=== PATIENT | male | born 1975 | race Caucasian/White ===

== ENCOUNTER 2023-06-06 22:27 | Inpatient (IN) | payer OTHER, SELFPAY ==
[2023-06-06 22:28] VITALS: BP 135/101; PULSE 99; RESP 16; TEMP 37.6; O2SAT 99; BMI 31.7
[2023-06-06 23:03] VITALS: BMI 31.7
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
[2023-06-06 23:30] LABS: Basophils # 0.1 K/mm3 (0-0.2); Basophils % 0.4 % (0.1-2.0); Eosinophils # 0.2 K/mm3 (0.0-0.4); Eosinophils % 1.6 % (0.1-12.0); Hematocrit 47.7 % (42.0-52.0); Hemoglobin 15.8 g/dL (14.1-18.0); Lymphocytes # 2.9 K/mm3 (0.7-4.5); Lymphocytes % 23.7 % (10-50); Mean Corpuscular Hemoglobin 30.3 pg (27.0-31.2); Mean Corpuscular Volume 91.7 fl (80-94); Mean Platelet Volume 8.2 fl (7.4-10.4); Monocytes # 0.9 K/mm3 (0.1-1.0); Monocytes % 7.6 % (1.7-9.3); Neutrophils # 8.3 K/mm3 (1.8-7.8); Neutrophils % 66.8 % (37.0-80.0); Platelet Count 250 K/mm3 (142-424); Red Blood Count 5.21 M/mm3 (4.60-6.20); Red Cell Distribution Width 13.6 % (11.5-17.5); White Blood Count 12.4 K/mm3 (4.8-10.8)
[2023-06-06 23:36] LABS: Lactic Acid 1.4 mmol/L (0.7-2.1)
[2023-06-06 23:37] LABS: Alanine Aminotransferase 28 U/L (12-78); Albumin Level 4.6 g/dl (3.5-5.0); Albumin/Globulin Ratio 1.4 (1.1-1.8); Alkaline Phosphatase 73 U/L (38-126); Anion Gap 14.9 mEq/L (5-15); Aspartate Amino Transferase 35 U/L (17-59); Bilirubin,Total 0.9 mg/dl (0.2-1.3); Blood Urea Nitrogen 18 mg/dl (9-20); Calcium 8.9 mg/dl (8.4-10.2); Carbon Dioxide 25 mmol/L (22.0-30.0); Chloride 104 mmol/L (98-107); Creatinine Clearance Estimated 141 mL/min (50-200); Estimated Glomerular Filt Rate 91 ml/min (>60); GFR (African American) 110 ML/MIN (>60); Globulin 3.3 g/dL (1.3-3.2); Glucose 91 mg/dl (74-100); Potassium 3.9 mmoL/L (3.5-5.1); Sodium 140 mmol/L (136-145); Total Protein,Serum 7.9 g/dl (6.3-8.2)
[2023-06-06 23:42] LABS: C-Reactive Protein 19.7 mg/L (0-4)
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
[2023-06-06 23:56] LABS: Procalcitonin 0.047 ng/mL (0.0-2.0)
[2023-06-07] VITALS (26 sets, daily range): BP systolic 115–148; BP diastolic 69–97; PULSE 65–94; RESP 15–22; TEMP 36.2–43; O2SAT 96–100; BMI 31.8
[2023-06-07 00:01] LABS: Erythrocyte Sedimentation Rate 15 mm/hr (0-15)
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
--- NOTE | 2023-06-07 02:10 | PC.NURSE ---
minor on phone with dr wall
--- NOTE | 2023-06-07 02:10 | PC.NURSE ---
minor speaking with hospitalist
--- NOTE | 2023-06-07 02:18 | PC.NURSE ---
Registration notified of admission. Pt assigned to room 214 to the hospitalist. OBS.
[2023-06-07 02:21] LABS: Coronavirus 19, PCR Not Detected (NotDetected); Influenza A, PCR Not Detected (NotDetected); Influenza B, PCR Not Detected (NotDetected)
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
--- NOTE | 2023-06-07 02:49 | PC.NURSE ---
gave report to Tevin RN on 2nd floor, awaiting covid swab
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
--- NOTE | 2023-06-07 03:07 | PC.NURSE ---
0310 PATIENT ARRIVED TO THE FLOOR VIA STRETCHER. ADMITTED TO ROOM 214.
--- NOTE | 2023-06-07 03:12 | PC.NURSE ---
Pt arrived to the floor via stretcher @ [id number]
[2023-06-07 06:06] LABS: Basophils # 0.1 K/mm3 (0-0.2); Basophils % 0.6 % (0.1-2.0); Eosinophils # 0.2 K/mm3 (0.0-0.4); Eosinophils % 1.8 % (0.1-12.0); Hematocrit 44.8 % (42.0-52.0); Hemoglobin 14.5 g/dL (14.1-18.0); Lymphocytes # 3.1 K/mm3 (0.7-4.5); Lymphocytes % 28.7 % (10-50); Mean Corpuscular HGB Conc 32.3 g/dL (31.8-35.4); Mean Corpuscular Hemoglobin 30.4 pg (27.0-31.2); Mean Corpuscular Volume 94.1 fl (80-94); Mean Platelet Volume 8.2 fl (7.4-10.4); Monocytes # 0.9 K/mm3 (0.1-1.0); Monocytes % 7.8 % (1.7-9.3); Neutrophils # 6.7 K/mm3 (1.8-7.8); Neutrophils % 61.2 % (37.0-80.0); Platelet Count 214 K/mm3 (142-424); Red Blood Count 4.76 M/mm3 (4.60-6.20); Red Cell Distribution Width 13.8 % (11.5-17.5); White Blood Count 10.9 K/mm3 (4.8-10.8)
[2023-06-07 06:13] LABS: Anion Gap 9.9 mEq/L (5-15); Blood Urea Nitrogen 15 mg/dl (9-20); Carbon Dioxide 27 mmol/L (22.0-30.0); Chloride 106 mmol/L (98-107); Creatinine Clearance Estimated 141 mL/min (50-200); Estimated Glomerular Filt Rate 91 ml/min (>60); GFR (African American) 110 ML/MIN (>60); Glucose 101 mg/dl (74-100); Magnesium 1.9 mg/dl (1.6-2.3); Potassium 3.9 mmoL/L (3.5-5.1); Sodium 139 mmol/L (136-145)
--- NOTE | 2023-06-07 07:27 | MR_ITS ---
FINAL REPORT CLINICAL HISTORY: rule out Grigsby-Alie lesion left knee/thigh FINDINGS: Multiplanar MR imaging of the right knee to include the distal thigh was performed without contrast. The menisci and ligaments are suboptimally visualized but appear to be intact. The distal quadriceps and patellar tendons appear intact. There is no fracture or bone marrow edema. There is a heterogeneous collection in the region of the medial distal thigh in the deep subcutaneous tissues measuring 12 cm in length and 7 x 1.8 cm in axial dimension with an appearance consistent with a hematoma. There lies superficial to the vastus medialis muscle and is consistent with a Grigsby Alie lesion. There is a small joint effusion. A small popliteal cyst is present. IMPRESSION: Heterogeneous collection in the region of the medial distal thigh consistent with a Grigsby Alie lesion. Small joint effusion. Reviewed, Interpreted and Dictated by Ramón Mccann III, MD Transcribed by Hailey Galvan Authenticated and [facility]
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
--- NOTE | 2023-06-07 08:25 | EXP.PHA.CONS ---
Pharmacy Consult Date: 06/07/23 Time: 08:25 Referring provider: DR MEJIAS Reason for Consult:: VANCOMYCIN DOSING CONSULT Allergies Allergy/AdvReac Type Severity Reaction Status Date / Time No Known Allergies Allergy Unverified 06/07/23 07:14 Home Medications Medication Instructions Recorded Confirmed Type No Known Home Medications 06/07/23 06/07/23 History New Prescriptions to Start Prescriptions: Height: 1.75 m Weight: 97.341 kg Laboratory Results:: Laboratory Results - last 24 hr 06/06/23 23:09: WBC 12.4 H, RBC 5.21, Hgb 15.8, Hct 47.7, MCV 91.7, MCH 30.3, MCHC 33.0, RDW 13.6, Plt Count 250, MPV 8.2, Neut % (Auto) 66.8, Lymph % (Auto) 23.7, [place] % (Auto) 7.6, Eos % (Auto) 1.6, Baso % (Auto) 0.4, Neut # (Auto) 8.3 H, Lymph # (Auto) 2.9, [place] # (Auto) 0.9, Eos # (Auto) 0.2, Baso # (Auto) 0.1, ESR 15, Sodium 140, Potassium 3.9, Chloride 104, Carbon Dioxide 25, Anion Gap 14.9, BUN 18, Creatinine 0.90, Estimated Creat Clear 141, Estimated GFR 91, Est GFR ( Amer) 110, Glucose 91, Lactate 1.4, Calcium 8.9, Total Bilirubin 0.9, AST 35, ALT 28, Alkaline Phosphatase 73, C-Reactive Protein 19.7 H, Total Protein 7.9, Albumin 4.6, Globulin 3.3 H, Albumin/Globulin Ratio 1.4, Procalcitonin 0.047 06/07/23 02:14: SARS-CoV-2 (PCR) Not detected, Influenza A Untype (PCR) Not detected, Influenza Type B (PCR) Not detected 06/07/23 05:40: WBC 10.9 H, RBC 4.76, Hgb 14.5, Hct 44.8, MCV 94.1 H, MCH 30.4, MCHC 32.3, RDW 13.8, Plt Count 214, MPV 8.2, Neut % (Auto) 61.2, Lymph % (Auto) 28.7, [place] % (Auto) 7.8, Eos % (Auto) 1.8, Baso % (Auto) 0.6, Neut # (Auto) 6.7, Lymph # (Auto) 3.1, [place] # (Auto) 0.9, Eos # (Auto) 0.2, Baso # (Auto) 0.1, Sodium 139, Potassium 3.9, Chloride 106, Carbon Dioxide 27, Anion Gap 9.9, BUN 15, Creatinine 0.90, Estimated Creat Clear 141, Estimated GFR 91, Est GFR ( Amer) 110, Glucose 101 H, Calcium 8.0 L, Magnesium 1.9 Assessment and Plan Assessment and plan all Dx Assessment and Plan for all problems:: Pharmacokinetic dosing service Objective: Age: 47 yo Serum creatinine: 0.9 mg/dL Height: 68.9 Inches Weight (kg): 97.341 Diagnosis: CELLULITIS Assessment: IBW (kg): 70.47 Dosing wt(kg): 97.341 Estimated Creatinine clearance (ml/min): 102.2 CRCL method: Cockcroft and Gault using ibw(default). Drug selected: Vancomycin Loading dose (mg): Vd (liters): 68.1 (factor used: 0.7 L/kg) Nir (hr-1): 0.089 Half life (hrs): 7.79 CLvanco=?? 6.061 L/hr Recommended dose: 1750 mg Interval: 12 hrs Infusion time (hrs): 2.0 Predicted peak (mcg/mL): 35.9 Predicted trough (mcg/mL): 14.74 Total body weight is being used for vancomycin dosing. Recommendations: Give Vancomycin 1750 mg q 12 hrs with an expected Cpeak of 35.9 mcg/ml and an expected Ctrough of 14.74 mcg/ml AUC 0-24 /ALIYAH Data: ALIYAH 0.5 mcg/mL:?? AUC/ALIYAH:? 1154.9 ALIYAH 1.0 mcg/mL:?? AUC/ALIYAH:? 577.5 --------- ALIYAH 1.5 mcg/mL:?? AUC/ALIYAH:? 385.0 ALIYAH 2.0 mcg/mL:?? AUC/ALIYAH:? 288.7 Thank you for the consult
--- NOTE | 2023-06-07 08:53 | PC.NURSE ---
PT TO RAD
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
--- NOTE | 2023-06-07 09:02 | PC.NURSE ---
COURTESY TECH NOTE; ROUNDED ON PT 0805, PT DENIED NEED FOR ASSISTANCE WITH RESTROOM, AND NEED TO REPOSITION IN BED. CALL LIGHT WITHIN REACH, NO FURTHER REQUESTS AT THIS TIME KEREN SAMPSON
--- NOTE | 2023-06-07 11:41 | PC.NURSE ---
PT TO SURGERY
--- NOTE | 2023-06-07 12:31 | P.PN_ITS ---
[facility] Disclaimer: The information contained in this section may have been updated after the patient was seen, as this information can be updated by other users. Social History (Updated 06/07/23 @ 03:54 by Veronica Webber RN) Smoking Status: Current every day smoker tobacco type: cigarettes packs per day: 1 alcohol intake: never substance use type: denies use current occupational status: other Travel in the last 8 weeks: None [facility] Anesthesia Checklist Patient Identification Patient Identification: Arm Band Structural Data Admitted From: Inpatient Planned Operative Procedure/s: Debridement and Evacuation of Left Knee Hematoma Consent for Planned Operative Procedure(s) Verified: Yes Verified Documents: Surgical Consent and History and Physical NPO Status Verified Time NPO: 00:00 Additional verifications Anesthesia Reactions: No Airway Assessment C-Spine Mobility Assessed: Yes TMJ Mobility Assessed: Yes Dentition: Good Dentition Neurological Assessment Level of Consciousness: Awake and Alert Anesthesia Plan Anesthesia Risk discussed: Yes Anesthesia Plan: Verified ASA Class: II Anesthesia Type: General
--- NOTE | 2023-06-07 12:57 | EXP.ANES.I ---
[facility] Anesthesia Record Part I Anesthesia Record I Intake, IV Amount: 1,000 Estimated blood loss (mL): 100 Urine output (mL): 0 Blood Products used (#): none Blood Pressure: 134/87 SaO2: 96 Pulse Rate: 75 Respiratory Rate: 16 Temperature: 97.2 F Patient is:: Drowsy and Stable Stable to PACU at:: 12:55
--- NOTE | 2023-06-07 13:47 | EXP.ANES.II ---
[facility] Anesthesia Record Part II Anesthesia Record Part II Discharge Time: 13:22 Destination: Medical Surgical Department PACU nurse assessment reviewed?: Yes Patient Condition:: Good Anesthesia Complications:: None Swallowing reflex intact?: Yes Cyanosis?: No Blood Pressure: 135/84 Pulse Rate: 69 Temperature: 97.2 F Mental Status: Alert & Oriented Pain level:: 0 Nausea and/or vomitting:: None Intake, IV Amount: 0
--- NOTE | 2023-06-07 18:29 | PC.NURSE ---
Patient post op vitals stable, no complaints or reports of pain.
--- NOTE | 2023-06-07 18:32 | PC.NURSE ---
COURTESY TECH NOTE; PRIMARY TECH ASSISTED PT WITH BATH SET UP, PT STATED HIS WOULD ASSIST HIM WHEN READY. PT DID NOT REFUSE TO BATHE BUT DID NOT BATHE DURING THIS SHIFT. Charlotte FORD, KEREN
--- NOTE | 2023-06-07 19:03 | PC.NURSE ---
PT REF BATH PRIOR TO SURGERY SATING HE WANTS TO WAIT FOR HIS . TECH SET PT UP FOR BS BATH THIS EVENING AND PT REF.
--- NOTE | 2023-06-07 21:28 | PC.NURSE ---
assessed pain, pt stated he wasn't in any pain. MISSY drain is patent with red bloody drainage.
[2023-06-08] VITALS: BP 133/73; PULSE 70; RESP 16; TEMP 36.7; O2SAT 97
--- NOTE | 2023-06-08 00:52 | PC.NURSE ---
pt refused bath several times t/o night.
--- NOTE | 2023-06-08 00:54 | PC.NURSE ---
Pt was asked by both techs if wanted a bath, pt refused, stated she has asked all day and he has refused reported to RN.
[2023-06-08 04:00] VITALS: BP 134/82; PULSE 60; RESP 16; TEMP 36.6; O2SAT 98; BMI 32.5
--- NOTE | 2023-06-08 06:15 | PC.NURSE ---
emptied MISSY drain, 8 ml output, no clots or c/o of pain
[2023-06-08 07:27] VITALS: BP 144/87; PULSE 77; RESP 17; TEMP 36.8; O2SAT 96
[2023-06-08 07:55] LABS: Alanine Aminotransferase 21 U/L (12-78); Albumin Level 3.6 g/dl (3.5-5.0); Albumin/Globulin Ratio 1.3 (1.1-1.8); Alkaline Phosphatase 67 U/L (38-126); Anion Gap 10.2 mEq/L (5-15); Aspartate Amino Transferase 28 U/L (17-59); Bilirubin,Total 0.3 mg/dl (0.2-1.3); Blood Urea Nitrogen 17 mg/dl (9-20); Calcium 8.4 mg/dl (8.4-10.2); Carbon Dioxide 27 mmol/L (22.0-30.0); Chloride 107 mmol/L (98-107); Creatinine Clearance Estimated 145 mL/min (50-200); Estimated Glomerular Filt Rate 91 ml/min (>60); GFR (African American) 110 ML/MIN (>60); Globulin 2.7 g/dL (1.3-3.2); Glucose 94 mg/dl (74-100); Potassium 4.2 mmoL/L (3.5-5.1); Sodium 140 mmol/L (136-145); Total Protein,Serum 6.3 g/dl (6.3-8.2)
[2023-06-08 08:00] LABS: Basophils % 0.2 % (0.1-2.0); Eosinophils # 0.1 K/mm3 (0.0-0.4); Eosinophils % 0.9 % (0.1-12.0); Hematocrit 43.3 % (42.0-52.0); Hemoglobin 14.1 g/dL (14.1-18.0); Lymphocytes # 3.4 K/mm3 (0.7-4.5); Lymphocytes % 24.8 % (10-50); Mean Corpuscular HGB Conc 32.5 g/dL (31.8-35.4); Mean Corpuscular Volume 92.3 fl (80-94); Mean Platelet Volume 8.1 fl (7.4-10.4); Monocytes # 0.8 K/mm3 (0.1-1.0); Monocytes % 6.1 % (1.7-9.3); Neutrophils # 9.3 K/mm3 (1.8-7.8); Neutrophils % 67.9 % (37.0-80.0); Platelet Count 221 K/mm3 (142-424); Red Cell Distribution Width 13.7 % (11.5-17.5); White Blood Count 13.7 K/mm3 (4.8-10.8)
[2023-06-08 08:01] LABS: C-Reactive Protein 24.8 mg/L (0-4)
--- NOTE | 2023-06-08 08:13 | EXP.ACUTE.PN ---
Subjective *Date: 06/08/23 *Time: 09:31 Interval history: Had debridement of hematoma/Grigsby lesion yesterday. Tolerated procedure well. No fevers overnight. Left leg in postsurgical wrap. MISSY in place. Stable on room air. Tolerating p.o. intake. No nausea or vomiting or chest pain. Medical Exam Vital signs and Labs for Last 24 Hours: Vital Signs Temp Pulse Pulse Resp BP BP Pulse Ox 06/08/23 07:27 98.2 F 77 17 144/87 H 96 06/08/23 06:16 06/08/23 04:00 97.9 F 60 16 134/82 98 06/08/23 04:43 06/08/23 00:00 98.1 F 70 16 133/73 97 06/08/23 03:00 06/08/23 01:00 06/07/23 22:52 06/07/23 21:00 06/07/23 20:00 06/07/23 20:15 83 16 145/85 H 100 06/07/23 19:15 85 16 140/69 98 06/07/23 18:15 84 16 148/78 H 98 06/07/23 18:31 06/07/23 17:00 06/07/23 17:15 97.9 F 88 18 146/85 H 97 06/07/23 16:15 97.8 F 65 16 143/86 H 99 06/07/23 15:45 98.1 F 66 16 148/96 H 99 06/07/23 15:00 06/07/23 13:00 06/07/23 14:15 68 15 131/97 H 100 06/07/23 14:00 65 16 136/88 99 06/07/23 13:45 66 17 137/95 H 98 06/07/23 13:30 80 16 137/85 97 06/07/23 13:22 69 16 135/84 96 06/07/23 13:15 68 16 127/85 96 06/07/23 13:05 71 16 128/91 H 98 06/07/23 12:55 97.2 F L 75 16 134/87 96 06/07/23 11:00 06/07/23 09:00 06/07/23 12:58 97.2 F L 75 16 134/87 O2 Del Method 06/08/23 07:27 Room Air 06/08/23 06:16 Room Air 06/08/23 04:00 Room Air 06/08/23 04:43 Room Air 06/08/23 00:00 Room Air 06/08/23 03:00 Room Air 06/08/23 01:00 Room Air 06/07/23 22:52 Room Air 06/07/23 21:00 Room Air 06/07/23 20:00 Room Air 06/07/23 20:15 Room Air 06/07/23 19:15 Room Air 06/07/23 18:15 06/07/23 18:31 Room Air 06/07/23 17:00 Room Air 06/07/23 17:15 Room Air 06/07/23 16:15 Room Air 06/07/23 15:45 Room Air 06/07/23 15:00 Room Air 06/07/23 13:00 Room Air 06/07/23 14:15 06/07/23 14:00 Room Air 06/07/23 13:45 Room Air 06/07/23 13:30 Room Air 06/07/23 13:22 Room Air 06/07/23 13:15 Room Air 06/07/23 13:05 Room Air 06/07/23 12:55 Room Air 06/07/23 11:00 Room Air 06/07/23 09:00 Room Air 06/07/23 12:58 Intake and Output 06/07/23 06/08/23 06/08/23 23:59 07:59 15:59 Intake Total 0 / 2530 1222 / 1222 Output Total 1600 / 1600 808 / 808 Balance -1600 / 930 414 / 414 Intake: Intake, Oral Amount 0 / 0 720 / 720 Intake, Other Amount 20 / 20 Intake, Total IV Amount 482 / 482 Pipercillin/Tazo 3.375 gm In 0. 116 / 116 9 % Sodium Chloride 50 ml @ 100 mls/hr IV Q8H [place] Rx#: [id number] Vancomycin/Water For Inj (Peg) 366 / 366 1.75 gm In 350 ml @ 175 mls/hr IV Q12H [place] Rx#:[id number] Output: Output, Urine Amount 1600 / 1600 800 / 800 Output, Drainage Amount Left Knee Other: Intake, Other Source Saline Solution Number of Unmeasured Voids 1 0 Weight 99.881 kg Patient Weight 06/08/23 23:59 Weight 99.881 kg Laboratory Results - last 24 hr 06/08/23 06:54: WBC 13.7 H D, RBC 4.70, Hgb 14.1, Hct 43.3, MCV 92.3, MCH 30.0, MCHC 32.5, RDW 13.7, Plt Count 221, MPV 8.1, Neut % (Auto) 67.9, Lymph % (Auto) 24.8, [place] % (Auto) 6.1, Eos % (Auto) 0.9, Baso % (Auto) 0.2, Neut # (Auto) 9.3 H, Lymph # (Auto) 3.4, [place] # (Auto) 0.8, Eos # (Auto) 0.1, Baso # (Auto) 0.0, Sodium 140, Potassium 4.2, Chloride 107, Carbon Dioxide 27, Anion Gap 10.2, BUN 17, Creatinine 0.90, Estimated Creat Clear 145, Estimated GFR 91, Est GFR ( Amer) 110, Glucose 94, Calcium 8.4, Magnesium 2.0, Total Bilirubin 0.3, AST 28, ALT 21, Alkaline Phosphatase 67, Total Protein 6.3, Albumin 3.6 D, Globulin 2.7, Albumin/Globulin Ratio 1.3 I & O for Labs for Last 24 Hours: Intake & Output 06/05/23 06/06/23 06/07/23 06/08/23 23:59 23:59 23:59 23:59 I
--- NOTE | 2023-06-08 08:31 | PC.NURSE ---
patient was offered to shower/bath multiple times on multiple shifts. pt refuses each time. Nurse was notified
[2023-06-08 10:12] LABS: Erythrocyte Sedimentation Rate 19 mm/hr (0-15)
[2023-06-08 15:24] VITALS: BP 140/82; PULSE 71; RESP 17; TEMP 36.7; O2SAT 99
[2023-06-08 16:20] LABS: Vancomycin,Trough 10.2 ug/mL (5.0-10.0)
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
--- NOTE | 2023-06-08 19:20 | P.OP_ITS ---
Date of procedure: 06/08/23 Pre-op Diagnosis:: Grigsby Alie lesion left knee Post-op Diagnosis:: Same Procedure performed:: Left knee evacuation of hematoma and debridement Surgeon:: Zander Maurer DO VETERINARY ANATOMIST:: Moise Saldivar Anesthesia: GETA Estimated blood loss (mL): 100 Operative findings:: Large maturing hematoma Operative note:: Patient is identified preoperatively. Left leg markedly as of my initials. Transferred operative suite. Placed upon the operating bed. General anesthesia was administered and airway secured. The left knee was then prepped and draped normal sterile fashion. Once prepped and draped final operative timeout performed to identify proper patient procedure and extremity. Everyone involved the case agree. There are no counter indications to beginning. He did receive preoperative antibiotics. Marking pen was used to make incision over the medial aspect of the knee where the hematoma was present on the MRI scan. Leg was not exsanguinated but pneumatic tourniquet was inflated to 250 mmHg. Skin knife was used to incise through skin. Blunt dissection taken down through superficial over the vastus medialis. Large maturing hematoma was evacuated. Copious irrigation was perf ormed. Suction was placed in care of removing the entire hematoma. MISSY drain was placed. Irrigation repeated. The place closed with Vicryl stitch. Subcuticular closed with Monocryl stitch with Steri-Strips. Sterile dressing placed. Drain sutured to the skin. Patient waken anesthesia taken recovery in stable condition. Condition: stable Disposition: PACU Complications:: None apparent
--- NOTE | 2023-06-10 12:56 | CARE MANAGER ---
Attempted post-discharge phone interview, says patient is not accepting calls at this time.
--- NOTE | 2023-06-11 10:39 | CARE MANAGER ---
Unable to reach patient via phone to discuss recent discharge. Attempted call x 2, and patient is not accepting phone calls . No VM option available.
== END 2023-06-08 17:35 | disposition home health service (06) | DRG 988 ==
LOC: ER 22:47 → 2ND 06-07 02:45
PROVIDERS: Nurse Practitioner Critical Care Medicine; Orthopaedic Surgery; Admitting Provider Internal Medicine Adolescent Medicine; Emergency Provider Emergency Medicine; PCP Family Medicine; Visit Provider Internal Medicine Adolescent Medicine
DX: S80.02XA Contusion of left knee, initial encounter (principal); L03.116 Cellulitis of left lower limb; F17.210 Nicotine dependence, cigarettes, uncomplicated; V29.39XA Other motorcycle (driver) (passenger) injured in unspecified nontraffic accident, initial encounter
CPT/HCPCS: 27301; 36415; 70200; 71045; 72170; 73080; 73701; 73721; 80048; 80053; 80202; 83605; 83735; 84145; 85025; 85651; 86140; 87040; 87070; 87077; 87186; 87205; 87636; 90714; 99285; J2405; J2543; Q9967

== ENCOUNTER 2023-06-15 20:39 | Observation (INO) | payer OTHER, SELFPAY ==
[2023-06-15 20:40] VITALS: BP 117/97; PULSE 109; RESP 22; TEMP 36.8; O2SAT 100; BMI 31.6
--- NOTE | 2023-06-15 20:48 | ECG_ITS ---
APPROVED REPORT Exam: Resting ECG HR:121 bpm ECG Measurements Heart Rate 121 AXES UT 126 P 77 QRSd 82 QRS 84 QT 277 T 74 QTc 349 Conclusion SINUS TACHYCARDIA MINIMAL VOLTAGE CRITERIA FOR LVH, CONSIDER NORMAL VARIANT [MEETS CRITERIA IN ONE OF: R(aVL), S(V1), R(V5), R(V5/V6)+S(V1)] ABNORMAL RHYTHM ECG UNCONFIRMED REPORT Electronically signed by : Tung Pastrana MD 06/16/2023 06:57:54
[2023-06-15 21:01] VITALS: BP 132/85; PULSE 112; RESP 18; O2SAT 100
--- NOTE | 2023-06-15 21:01 | PC.NURSE ---
Dr. Graham at BS
--- NOTE | 2023-06-15 21:06 | CT_ITS ---
PROCEDURE INFORMATION: Exam: CTA Chest Without And With Contrast Exam date and time: 06/15/2023 9:15 PM Age: 47 years old Clinical indication: Dyspnea; Prior surgery; Surgery date: <1 month; Surgery type: SX to knee; Additional info: Post operative leg pain and acute dypspnea and pn TECHNIQUE: Imaging protocol: Computed tomographic angiography of the chest without and with contrast. Exam focused on the arteries. 3D rendering (Not supervised by radiologist): MIP and/or 3D reconstructed images were created by the technologist. Total images: 298 Radiation optimization: All CT scans at this facility use at least one of these dose optimization techniques: automated exposure control; mA and/or kV adjustment per patient size (includes targeted exams where dose is matched to clinical indication); or iterative reconstruction. Contrast material: ISOVUE 370; Contrast volume: 70 ml; Contrast route: INTRAVENOUS (IV); REPORTING DATA: Count of CT and Cardiac NM exams in prior 12 months: This patient has received [address] and 0 known cardiac nuclear medicine studies in the 12 months prior to the current study. COMPARISON: CR XR CHEST PORTABLE 06/06/2023 11:55 PM FINDINGS: Pulmonary arteries: Suboptimal contrast opacification of pulmonary arteries. Main pulmonary artery is normal in caliber. Nondiagnostic assessment for pulmonary emboli secondary to extensive respiratory motion artifact and poor intraluminal contrast density. Aorta: Respiratory motion and cardiac pulsation artifact obscures the ascending aorta. No aneurysm or gross dissection. Two vessel branching aortic arch is a normal anatomic variation. Lungs: Trachea and main bronchi are patent. Tiny nonspecific focus of pneumonitis at the lateral right lung base. No focal airspace consolidation. No pulmonary mass. Cannot evaluate for the presence of lung nodule secondary to extensive respiratory motion. Pleural spaces: Unremarkable. No pneumothorax. No pleural effusion. Heart: Normal heart size. No pericardial effusion. Coronary arteries: No significant coronary artery calcifications. Mediastinal space: No mediastinal mass or fluid collection. Lymph nodes: Calcified mediastinal and right hilar lymph nodes compatible with remote granulomatous disease. Liver: Subcentimeter left hepatic hypodensity, far too small to characterize but statistically a cyst. Intraperitoneal space: No acute process in the upper abdomen. Bones/joints: Moderate degenerative changes thoracic spine. Mild anterior wedging of consecutive mid to lower thoracic vertebral bodies likely reflecting underlying developmental spondylopathy. No concerning bone lesions. Soft tissues: Minor bilateral gynecomastia. Other findings: Extensive respiratory motion artifact renders evaluation nondiagnostic for exclusion of pulmonary emboli. IMPRESSION: 1. Nondiagnostic assessment for pulmonary emboli secondary to extensive respiratory motion and poor intra-arterial contrast density. 2. Tiny nonspecific focus of pneumonitis at the lateral right lung base. 3. Remote calcified granulomatous disease.
--- NOTE | 2023-06-15 21:07 | HMH.EDGENADL ---
Discharge Plan Disposition Patient Disposition: Admitted Prescriptions Prescriptions: No Action sulfamethoxazole-trimethoprim [Bactrim DS] 800-160 mg tablet 1 tab PO BID 7 Days Qty: 14 0RF hydrocodone-acetaminophen 5-325 mg tablet 1 tab PO Q8H PRN (Reason: pain) 3 Days Qty: 9 0RF Referrals Follow up/Referrals: Ambrosio Ross MD [Primary Care Provider] - See instructions Clinical Impressions Clinical Impression: Embolism, pulmonary with infarction, Acute deep vein thrombosis (DVT) of popliteal vein Discharge ED Provider: Nithin Graham General Adult HPI General Chief complaint: Shortness of Breath/Dyspnea Stated complaint: SOA Time Seen by Provider: 06/15/23 21:00 Mode of Arrival: Wheelchair Source of Information: Patient Limitations: No Limitations Description of Symptoms (Recalled from ER Triage Doc. by RN): patient to ED via wheelchair by POV for SOA. Patient reports that he woke up from sleeping approx 1 hr ago, went to the bathroom, and became extremely SOA. Patient denies physical exertion at this time. Patient diaphoretic, and states that hes going to pass out during assessment. History of Present Illness HPI narrative: Patient is a 47-year-old male who is a few weeks postop from left lower extremity surgery presenting today with acute onset of dyspnea and pleuritic right-sided chest pain. Patient states he had some left lower extremity swelling and some discomfort in the posterior aspect of his left calf. Patient felt he was going to pass out right before arrival today. Denies history of DVT or PE has not been on any anticoagulants. No fevers or chills or any symptoms preceding today. Related Data Previous Rx's Medication Instructions Recorded hydrocodone 5 mg-acetaminophen 325 1 tab PO Q8H PRN pain 3 days #9 06/08/23 mg tablet tabs sulfamethoxazole 800 1 tab PO BID 7 days #14 tabs 06/08/23 mg-trimethoprim 160 mg tablet (Bactrim DS) Allergies Allergy/AdvReac Type Severity Reaction Status Date / Time No Known Allergies Allergy Unverified 06/07/23 07:14 [facility] Disclaimer: The information contained in this section may have been updated after the patient was seen, as this information can be updated by other users. Social History (Updated 06/07/23 @ 12:33 by Moise Saldivar CRNA) Smoking Status: Current every day smoker tobacco type: cigarettes packs per day: 1 alcohol intake: never substance use type: denies use current occupational status: other Travel in the last 8 weeks: None ROS Obtained: Yes All systems reviewed & no additional complaints except as documented Physical Exam General General appearance: other (Diaphoretic and a mild amount of distress) Respiratory Respiratory exam: Present normal lung sounds bilaterally and other (Sats 100% on room air); Absent respiratory distress, wheezes, stridor or accessory muscle use Cardiovascular Cardiovascular exam: Present normal rhythm and tachycardia Neurological Exam Neurological exam: Present alert and oriented X3 Medical Decision Making Nik Inquiry Pt receiving controlled substance: No Vital Signs: 06/15/23 20:40 06/15/23 21:01 Temperature 98.2 F Temperature Source Oral Pulse Rate 112 H Pulse Rate [Left] 109 H Respiratory Rate 22 18 Blood Pressure 132/85 Blood Pressure [Right Arm] 117/97 H Blood Pressure Mean [Right Arm] 103 Blood Pressure Source [Right Arm] Automatic Cuff Blood Pressure Position [Right Arm] Sitting 02 Sat by Pulse Oximetry 100 100 Oxygen Delivery Method Room Air Room Air Lab Data Lab results reviewed: Yes I reviewed the patient's lab results. Lab Results 06/15/23 20:45: WBC 12.2 H, RBC 4.97, Hgb 14.9, Hct 46.3, MCV 93.1, MCH 29.9, MCHC 32.1, RDW 13.5, Plt Count 297, MPV 8.4, Neut % (Auto) 63.1, Lymph % (Auto) 26.6, [place] % (Auto) 7.3, Eos % (Auto) 2.6, Baso % (Auto) 0.4, Neut # (Auto) 7.7, Lymph # (Auto) 3.3, [place] # (Auto) 0.9, Eos # (Auto) 0.3, Baso # (Auto) 0.1,
[2023-06-15 21:12] LABS: Basophils # 0.1 K/mm3 (0-0.2); Basophils % 0.4 % (0.1-2.0); Chloride 102 mmol/L (98-107); Eosinophils # 0.3 K/mm3 (0.0-0.4); Eosinophils % 2.6 % (0.1-12.0); Hematocrit 46.3 % (42.0-52.0); Hemoglobin 14.9 g/dL (14.1-18.0); Lymphocytes # 3.3 K/mm3 (0.7-4.5); Lymphocytes % 26.6 % (10-50); Mean Corpuscular HGB Conc 32.1 g/dL (31.8-35.4); Mean Corpuscular Hemoglobin 29.9 pg (27.0-31.2); Mean Corpuscular Volume 93.1 fl (80-94); Mean Platelet Volume 8.4 fl (7.4-10.4); Monocytes # 0.9 K/mm3 (0.1-1.0); Monocytes % 7.3 % (1.7-9.3); Neutrophils # 7.7 K/mm3 (1.8-7.8); Neutrophils % 63.1 % (37.0-80.0); Platelet Count 297 K/mm3 (142-424); Red Blood Count 4.97 M/mm3 (4.60-6.20); Red Cell Distribution Width 13.5 % (11.5-17.5); White Blood Count 12.2 K/mm3 (4.8-10.8)
[2023-06-15 21:13] LABS: Sodium 139 mmol/L (136-145)
[2023-06-15 21:15] LABS: Alanine Aminotransferase 38 U/L (12-78); Aspartate Amino Transferase 42 U/L (17-59); Blood Urea Nitrogen 22 mg/dl (9-20); Creatinine Clearance Estimated 141 mL/min (50-200); Estimated Glomerular Filt Rate 91 ml/min (>60); GFR (African American) 110 ML/MIN (>60)
[2023-06-15 21:16] LABS: Albumin Level 4.2 g/dl (3.5-5.0); Alkaline Phosphatase 122 U/L (38-126); Bilirubin,Total 0.8 mg/dl (0.2-1.3); Calcium 9.3 mg/dl (8.4-10.2); Carbon Dioxide 30 mmol/L (22.0-30.0); Globulin 4.1 g/dL (1.3-3.2); Glucose 92 mg/dl (74-100); Total Protein,Serum 8.3 g/dl (6.3-8.2)
--- NOTE | 2023-06-15 21:18 | PC.NURSE ---
Pt gone to RAD via wheelchair
[2023-06-15 21:25] LABS: Anion Gap 11.9 mEq/L (5-15); Potassium 4.9 mmoL/L (3.5-5.1)
--- NOTE | 2023-06-15 21:27 | PC.NURSE ---
patient returned from CT via WC
[2023-06-15 21:33] LABS: Troponin I < 0.01 ng/ml (0.00-0.034)
--- NOTE | 2023-06-15 22:06 | PC.NURSE ---
MD at bedside using ultrasound. Received ct with contrast and due to result stated he would be looking for a DVT at this time using FAST technique.
--- NOTE | 2023-06-15 22:11 | PC.NURSE ---
Dr. Graham at BS
[2023-06-15 22:26] LABS: Coronavirus 19, PCR Not Detected (NotDetected); Influenza A, PCR Not Detected (NotDetected); Influenza B, PCR Not Detected (NotDetected)
--- NOTE | 2023-06-15 23:13 | XR_ITS ---
PROCEDURE INFORMATION: Exam: XR Chest Exam date and time: 06/15/2023 11:33 PM Age: 47 years old Clinical indication: Shortness of breath; Additional info: SOB TECHNIQUE: Imaging protocol: Radiologic exam of the chest. Views: 1 view. Total images: 2 COMPARISON: CR XR CHEST PORTABLE 06/06/2023 11:55 PM FINDINGS: Tubes, catheters and devices: EKG leads are present. Lungs: No radiographic correlate for tiny focus of nonspecific pneumonitis at the lateral right lung base described by recent CT. No consolidation. No pulmonary vascular congestion or edema. Pleural spaces: Unremarkable. No pleural effusion. No pneumothorax. Heart/Mediastinum: Unremarkable. No cardiomegaly. No mediastinal widening or hilar enlargement. Diaphragm: Mild eventration right hemidiaphragm. Bones/joints: Unremarkable. IMPRESSION: No radiographically acute cardiopulmonary process.
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
[2023-06-15 23:23] LABS: INR 0.98 (0.9-1.1); Prothrombin Time 10.6 seconds (10.1-12.5)
--- NOTE | 2023-06-15 23:26 | PC.NURSE ---
report called to LAUREN Angeles
[2023-06-15 23:38] LABS: D-Dimer 1.74 ug/mL (0.0-0.5)
--- NOTE | 2023-06-15 23:56 | PC.NURSE ---
pt arrived to the floor at 23:50
[2023-06-16] VITALS (9 sets, daily range): BP systolic 110–142; BP diastolic 62–81; PULSE 75–97; RESP 16–22; TEMP 36.4–36.9; O2SAT 97–100; BMI 30.4
[2023-06-16 00:47] LABS: Troponin I < 0.01 ng/ml (0.00-0.034)
[2023-06-16 03:39] LABS: Troponin I < 0.01 ng/ml (0.00-0.034)
--- NOTE | 2023-06-16 06:08 | CT_ITS ---
PROCEDURE INFORMATION: Exam: CTA Chest With Contrast Exam date and time: 06/16/2023 6:12 AM Age: 47 years old Clinical indication: Shortness of breath; Additional info: SOB TECHNIQUE: Imaging protocol: Computed tomographic angiography of the chest with contrast. Exam focused on the arteries. 3D rendering (Not supervised by radiologist): MIP and/or 3D reconstructed images were created by the technologist. Radiation optimization: All CT scans at this facility use at least one of these dose optimization techniques: automated exposure control; mA and/or kV adjustment per patient size (includes targeted exams where dose is matched to clinical indication); or iterative reconstruction. Contrast material: ISOVUE; Contrast volume: 70 ml; Contrast route: INTRAVENOUS (IV); REPORTING DATA: Count of CT and Cardiac NM exams in prior 12 months: This patient has received 2 known CTs and 0 known cardiac nuclear medicine studies in the 12 months prior to the current study. COMPARISON: CT ANGIO CHEST PE PROTOCOL 06/15/2023 9:15 PM FINDINGS: Pulmonary arteries: Multiple small lower lobe pulmonary emboli are present bilaterally. The clot burden is low. Aorta: Unremarkable. No aortic aneurysm. No aortic dissection. Lungs: Minimal basilar atelectasis is present. Pleural spaces: Unremarkable. No pneumothorax. No pleural effusion. Heart: Unremarkable. No cardiomegaly. No pericardial effusion. Heart RV/LV ratio: The RV to LV ratio is 1.0. Coronary arteries: No coronary atherosclerosis is noted. Lymph nodes: Unremarkable. No enlarged lymph nodes. Bones/joints: Unremarkable. No acute fracture. Soft tissues: Unremarkable. IMPRESSION: Multiple small bilateral lower lobe pulmonary emboli. Clot burden is low. No evidence of right heart strain present.
[2023-06-16 06:56] LABS: Basophils # 0.1 K/mm3 (0-0.2); Basophils % 0.6 % (0.1-2.0); Eosinophils # 0.3 K/mm3 (0.0-0.4); Eosinophils % 3.4 % (0.1-12.0); Hematocrit 43.4 % (42.0-52.0); Hemoglobin 13.7 g/dL (14.1-18.0); Lymphocytes % 31.3 % (10-50); Mean Corpuscular HGB Conc 31.7 g/dL (31.8-35.4); Mean Corpuscular Hemoglobin 29.4 pg (27.0-31.2); Mean Corpuscular Volume 92.8 fl (80-94); Mean Platelet Volume 8.3 fl (7.4-10.4); Monocytes # 0.8 K/mm3 (0.1-1.0); Neutrophils # 5.4 K/mm3 (1.8-7.8); Neutrophils % 56.7 % (37.0-80.0); Platelet Count 262 K/mm3 (142-424); Red Blood Count 4.67 M/mm3 (4.60-6.20); Red Cell Distribution Width 13.4 % (11.5-17.5); White Blood Count 9.5 K/mm3 (4.8-10.8)
[2023-06-16 07:06] LABS: Alanine Aminotransferase 34 U/L (12-78); Albumin Level 3.6 g/dl (3.5-5.0); Albumin/Globulin Ratio 1.1 (1.1-1.8); Alkaline Phosphatase 101 U/L (38-126); Anion Gap 9.5 mEq/L (5-15); Aspartate Amino Transferase 34 U/L (17-59); Bilirubin,Total 0.5 mg/dl (0.2-1.3); Blood Urea Nitrogen 21 mg/dl (9-20); Calcium 8.6 mg/dl (8.4-10.2); Carbon Dioxide 28 mmol/L (22.0-30.0); Chloride 103 mmol/L (98-107); Chol/HDL Ratio 5.9 (1-3.5); Cholesterol 172 mg/dl (140-200); Creatinine Clearance Estimated 122 mL/min (50-200); Estimated Glomerular Filt Rate 80 ml/min (>60); GFR (African American) 97 ML/MIN (>60); Globulin 3.3 g/dL (1.3-3.2); Glucose 83 mg/dl (74-100); HDL Cholesterol 29 mg/dl (40-60); Potassium 4.5 mmoL/L (3.5-5.1); Sodium 136 mmol/L (136-145); Total Protein,Serum 6.9 g/dl (6.3-8.2); Triglycerides 145 mg/dl (30-150); VLDL Cholesterol 29 mg/dL (0-40)
[2023-06-16 07:17] LABS: Direct LDL Cholesterol 92.94 mg/dL (100-129)
--- NOTE | 2023-06-16 09:14 | HMH.PHAINT1 ---
Pharmacy Intervention Comments: MEDICATION RECONCILIATION COMPLETE USING RECENT HOSPITAL DISCHARGE NOTE (06/08/23) AND EXTERNAL PHARMACY FILL HISTORY, THE BACTRIM SHOULD'VE BEEN COMPLETED 06/14/23 AND WAS REMOVED FROM MEDICATION LIST.
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
== END 2023-06-16 17:31 | disposition home or self-care (01) ==
LOC: ER 22:21 → 2ND 23:05
PROVIDERS: Nurse Practitioner Family; Admitting Provider Internal Medicine; Emergency Provider Student in an Organized Health Care Education/Training Program; PCP Family Medicine; Visit Provider Internal Medicine
DX: I82.432 Acute embolism and thrombosis of left popliteal vein (principal); F17.210 Nicotine dependence, cigarettes, uncomplicated; I26.99 Other pulmonary embolism without acute cor pulmonale
CPT/HCPCS: 36415; 71045; 71275; 80053; 80061; 83735; 84484; 85025; 85378; 85610; 87636; 93005; 99285; G0378; Q9967

== ENCOUNTER 2023-06-17 03:40 | Observation (INO) | payer OTHER, SELFPAY ==
[2023-06-17] VITALS (8 sets, daily range): BP systolic 134–154; BP diastolic 77–97; PULSE 100–130; RESP 16–20; TEMP 36.8–37.7; O2SAT 91–98; BMI 31.7; BMI 31.6
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
--- NOTE | 2023-06-17 03:50 | PC.NURSE ---
Dr. Warner at BS
--- NOTE | 2023-06-17 03:54 | XR_ITS ---
PROCEDURE INFORMATION: Exam: XR Chest Exam date and time: 06/17/2023 4:20 AM Age: 47 years old Clinical indication: Shortness of breath; Additional info: SOA, small pe but now with chills. Best inspiration possible PT had a hard time taking in a breath and also being on back. TECHNIQUE: Imaging protocol: Radiologic exam of the chest. Views: 1 view. COMPARISON: CR XR CHEST AP 06/15/2023 11:33 PM FINDINGS: Lungs: Hypoinflation. Patchy right basilar airspace disease is noted laterally.. Pleural spaces: Unremarkable. No pleural effusion. No pneumothorax. Heart/Mediastinum: Unremarkable. No cardiomegaly. Bones/joints: Unremarkable. IMPRESSION: Hypoinflation with patchy right basilar airspace disease.
[2023-06-17 04:03] LABS: Basophils # 0.1 K/mm3 (0-0.2); Basophils % 0.4 % (0.1-2.0); Eosinophils # 0.4 K/mm3 (0.0-0.4); Eosinophils % 2.7 % (0.1-12.0); Hematocrit 45.7 % (42.0-52.0); Hemoglobin 14.7 g/dL (14.1-18.0); Lymphocytes # 2.7 K/mm3 (0.7-4.5); Lymphocytes % 20.6 % (10-50); Mean Corpuscular HGB Conc 32.3 g/dL (31.8-35.4); Mean Corpuscular Hemoglobin 30.1 pg (27.0-31.2); Mean Corpuscular Volume 93.3 fl (80-94); Mean Platelet Volume 8.5 fl (7.4-10.4); Monocytes # 0.9 K/mm3 (0.1-1.0); Monocytes % 7.2 % (1.7-9.3); Neutrophils % 69.1 % (37.0-80.0); Platelet Count 321 K/mm3 (142-424); Red Cell Distribution Width 13.3 % (11.5-17.5)
[2023-06-17 04:04] LABS: Chloride 102 mmol/L (98-107); Sodium 139 mmol/L (136-145)
[2023-06-17 04:07] LABS: Alanine Aminotransferase 41 U/L (12-78); Albumin Level 4.1 g/dl (3.5-5.0); Albumin/Globulin Ratio 1.2 (1.1-1.8); Alkaline Phosphatase 135 U/L (38-126); Aspartate Amino Transferase 39 U/L (17-59); Bilirubin,Total 0.7 mg/dl (0.2-1.3); Blood Urea Nitrogen 19 mg/dl (9-20); Carbon Dioxide 29 mmol/L (22.0-30.0); Creatinine Clearance Estimated 159 mL/min (50-200); Estimated Glomerular Filt Rate 104 ml/min (>60); GFR (African American) 126 ML/MIN (>60); Globulin 3.3 g/dL (1.3-3.2); Total Protein,Serum 7.4 g/dl (6.3-8.2)
--- NOTE | 2023-06-17 04:07 | ECG_ITS ---
APPROVED REPORT Exam: Resting ECG HR:112 bpm ECG Measurements Heart Rate 112 AXES VA 129 P 59 QRSd 78 QRS 70 QT 295 T 49 QTc 361 Conclusion SINUS TACHYCARDIA MODERATE VOLTAGE CRITERIA FOR LVH, CONSIDER NORMAL VARIANT [MEETS CRITERIA IN ONE OF: R(aVL), S(V1), R(V5), R(V5/V6)+S(V1)] ABNORMAL RHYTHM ECG UNCONFIRMED REPORT Electronically signed by : Tung Pastrana MD 06/17/2023 07:07:07
[2023-06-17 04:08] LABS: Calcium 9.1 mg/dl (8.4-10.2); Glucose 96 mg/dl (74-100)
[2023-06-17 04:10] LABS: Activated Partial Thrombo Time 33.2 seconds (22.8-30.6); INR 0.99 (0.9-1.1); Prothrombin Time 10.7 seconds (10.1-12.5)
--- NOTE | 2023-06-17 04:10 | HMH.EDGENADL ---
Discharge Plan Disposition Patient Disposition: Admitted Condition: Good Clinical Impressions Clinical Impression: Pneumonia Qualifiers: Pneumonia type: due to unspecified organism Laterality: right Lung location: lower lobe of lung Qualified Code(s): J18.9 - Pneumonia, unspecified organism Sepsis Qualifiers: Sepsis type: sepsis due to unspecified organism Sepsis acute organ dysfunction status: without acute organ dysfunction Qualified Code(s): A41.9 - Sepsis, unspecified organism Discharge ED Provider: Ericka Warner General Adult HPI General Chief complaint: Shortness of Breath/Dyspnea Stated complaint: SOB Time Seen by Provider: 06/17/23 03:44 Mode of Arrival: EMS Source of Information: Patient Limitations: No Limitations Description of Symptoms (Recalled from ER Triage Doc. by RN): pt reports that he woke up with shortness of air and pain in the right side of his chest pt states that he cant catch his breath and he is breaking out in a sweat. the pt was released from the hospital yesterday after a blood clot diagnosis and has been started on eliquis. History of Present Illness HPI narrative: This patient is a 47-year-old male who was recently discharged from the hospital after being admitted with diagnosis of DVT and pulmonary embolus presented to the emergency department for evaluation with concern for worsening chest pain and shortness of breath. He states that he woke up in a sweat with chills and experiencing significantly worse shortness of breath. He states that he cannot lie on his back because he feels like he cannot breathe. He states that he cannot take a deep breath in secondary to pain. He reports that he picked up his Eliquis and has been compliant with it since discharge. On medical record review, he has had 2 CTA pulmonary embolism protocol's over the last 72 hours that were concerning for very small subsegmental PEs without evidence of right heart strain. Patient denies any other concerns, such as fever, abdominal pain, nausea, vomiting, changes in bowel movements, or other issues. Related Data Previous Rx's Medication Instructions Recorded acetaminophen 500 mg tablet 1,000 mg PO TIDP #30 tabs 06/16/23 apixaban 5 mg tablet (Eliquis) 10 mg PO BID #60 tabs 06/16/23 oxycodone-acetaminophen 10 mg-325 1 tab PO Q8H PRN pain #10 tabs 06/16/23 mg tablet (Percocet) Allergies Allergy/AdvReac Type Severity Reaction Status Date / Time No Known Allergies Allergy Unverified 06/07/23 07:14 [facility] Disclaimer: The information contained in this section may have been updated after the patient was seen, as this information can be updated by other users. Social History Smoking Status: Current every day smoker tobacco type: cigarettes packs per day: 1 alcohol intake: former substance use type: denies use current occupational status: other Travel in the last 8 weeks: None ROS Obtained: Yes All systems reviewed & no additional complaints except as documented 14 point review of systems obtained and negative except as mentioned in HPI. Physical Exam General General appearance: alert Comment: Uncomfortable appearing, tachypneic, diaphoretic Head Head exam: atraumatic and normocephalic Eye Eye exam: Present normal appearance, PERRL and EOMI ENT ENT exam: Present normal exam, normal oropharynx and mucous membranes moist Neck Neck exam: Present normal inspection and full ROM Chest Chest inspection: Present normal inspection and symmetric chest wall rise; Absent tenderness Respiratory Respiratory exam: Present wheezes, accessory muscle use and other (Diminished breath sounds bilaterally with wheezes heard on the left greater than right) Cardiovascular Cardiovascular exam: Present normal rhythm and tachycardia Abdominal Exam Abdominal exam: Present soft; Absent distention, tenderness or guarding Extremities Exam Extremities exam: Present edema
[2023-06-17 04:31] LABS: Troponin I < 0.01 ng/ml (0.00-0.034)
[2023-06-17 04:49] LABS: Procalcitonin 0.073 ng/mL (0.0-2.0)
--- NOTE | 2023-06-17 04:53 | PC.NURSE ---
speaking with Hospitalist
--- NOTE | 2023-06-17 04:56 | PC.NURSE ---
Patient admitted obs to 206 admitting dx of Pna to hospitalist.
[2023-06-17 05:00] LABS: Coronavirus 19, PCR Not Detected (NotDetected); Influenza A, PCR Not Detected (NotDetected); Influenza B, PCR Not Detected (NotDetected)
--- NOTE | 2023-06-17 05:26 | PC.NURSE ---
floor notified pt ready to come up.
--- NOTE | 2023-06-17 05:43 | PC.NURSE ---
hospitalist assessed pt. 2nd floor called for transport again
--- NOTE | 2023-06-17 05:52 | PC.NURSE ---
PT ARRIVED TO THE FLOOR AT THIS TIME
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
[2023-06-17 06:32] LABS: D-Dimer 2.61 ug/mL (0.0-0.5)
--- NOTE | 2023-06-17 07:25 | HMH.PHAINT1 ---
Pharmacy Intervention Comments: Patient's home medications reviewed and verified with patient - Dong Gomez, Pharm Student
[2023-06-17 07:53] LABS: Troponin I < 0.01 ng/ml (0.00-0.034)
--- NOTE | 2023-06-17 08:07 | EXP.PHA.CONS ---
Pharmacy Consult Date: 06/17/23 Time: 08:07 Referring provider: DR. MEJIAS Reason for Consult:: VANCOMYCIN DOSING Allergies Allergy/AdvReac Type Severity Reaction Status Date / Time No Known Allergies Allergy Unverified 06/07/23 07:14 Home Medications Medication Instructions Recorded Confirmed Type acetaminophen 500 mg tablet 1,000 mg PO Q8HP PRN Moderate Pain 06/17/23 06/17/23 History (Scale Score 5-6) apixaban 5 mg tablet (Eliquis) 10 mg PO BID Blood Thinner/ PE 06/17/23 06/17/23 History Treatment tramadol 50 mg tablet 50 mg PO Q6HP PRN Severe Pain 06/17/23 06/17/23 History (Scale Score 7-10) New Prescriptions to Start Prescriptions: Height: 1.75 m Weight: 96.797 kg Laboratory Results:: Laboratory Results - last 24 hr 06/17/23 03:30: WBC 13.0 H D, RBC 4.90, Hgb 14.7, Hct 45.7, MCV 93.3, MCH 30.1, MCHC 32.3, RDW 13.3, Plt Count 321, MPV 8.5, Neut % (Auto) 69.1, Lymph % (Auto) 20.6, [place] % (Auto) 7.2, Eos % (Auto) 2.7, Baso % (Auto) 0.4, Neut # (Auto) 9.0 H, Lymph # (Auto) 2.7, [place] # (Auto) 0.9, Eos # (Auto) 0.4, Baso # (Auto) 0.1, PT 10.7, INR 0.99, APTT 33.2 H, D-Dimer 2.61 H, Sodium 139, Potassium 5.0, Chloride 102, Carbon Dioxide 29, Anion Gap 13.0, BUN 19, Creatinine 0.80, Estimated Creat Clear 159, Estimated GFR 104, Est GFR ( Amer) 126 D, Glucose 96, Calcium 9.1, Total Bilirubin 0.7, AST 39, ALT 41, Alkaline Phosphatase 135 H, Troponin I < 0.01, NT-Pro-B Natriuret Pep 65.0, Total Protein 7.4, Albumin 4.1 D, Globulin 3.3 H, Albumin/Globulin Ratio 1.2, Procalcitonin 0.073 06/17/23 04:54: SARS-CoV-2 (PCR) Not detected, Influenza A Untype (PCR) Not detected, Influenza Type B (PCR) Not detected 06/17/23 05:08: Lactate 1.0 06/17/23 07:20: Troponin I < 0.01 Assessment and Plan Assessment and plan all Dx Assessment and Plan for all problems:: STARTING VANCOMYCIN AT 2000 MG Q12H AT THIS TIME.
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
[2023-06-17 10:33] LABS: Troponin I < 0.01 ng/ml (0.00-0.034)
--- NOTE | 2023-06-17 18:41 | PC.NURSE ---
patient has complaints of shortness of air throughout shift and back pain upon movement.
[2023-06-18] VITALS: BP 152/89; PULSE 110; PULSE 119; RESP 20; TEMP 37.7; O2SAT 93
--- NOTE | 2023-06-18 03:59 | PC.NURSE ---
NO ACUTE CHANGES THIS SHIFT. PT HAS SLEPT INTERMITTENTLY. HAS BEEN MEDICATED FOR PAIN PER MAR THIS SHIFT. PT HAS C/O PAIN IN HIS LEFT KNEE. VSS.
[2023-06-18 04:00] VITALS: BP 144/85; PULSE 100; PULSE 114; RESP 20; TEMP 37.1; O2SAT 91; BMI 30.4
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
[2023-06-18 05:58] VITALS: O2SAT 87
[2023-06-18 07:06] LABS: Basophils # 0.1 K/mm3 (0-0.2); Basophils % 0.3 % (0.1-2.0); Eosinophils # 0.1 K/mm3 (0.0-0.4); Eosinophils % 0.9 % (0.1-12.0); Hematocrit 44.1 % (42.0-52.0); Hemoglobin 14.5 g/dL (14.1-18.0); Mean Corpuscular HGB Conc 32.8 g/dL (31.8-35.4); Mean Corpuscular Hemoglobin 30.1 pg (27.0-31.2); Mean Corpuscular Volume 91.7 fl (80-94); Mean Platelet Volume 8.2 fl (7.4-10.4); Monocytes # 1.1 K/mm3 (0.1-1.0); Monocytes % 7.4 % (1.7-9.3); Neutrophils # 11.8 K/mm3 (1.8-7.8); Neutrophils % 78.4 % (37.0-80.0); Platelet Count 317 K/mm3 (142-424); Red Blood Count 4.81 M/mm3 (4.60-6.20); Red Cell Distribution Width 13.2 % (11.5-17.5)
[2023-06-18 07:07] LABS: MANUAL DIFFERENTIAL MANUAL DIFFERENTIAL (MANUAL DIFF)
[2023-06-18 07:25] LABS: Anion Gap 12.2 mEq/L (5-15); Blood Urea Nitrogen 17 mg/dl (9-20); Calcium 9.2 mg/dl (8.4-10.2); Carbon Dioxide 28 mmol/L (22.0-30.0); Chloride 100 mmol/L (98-107); Creatinine Clearance Estimated 152 mL/min (50-200); Estimated Glomerular Filt Rate 104 ml/min (>60); GFR (African American) 126 ML/MIN (>60); Glucose 100 mg/dl (74-100); Potassium 4.2 mmoL/L (3.5-5.1); Sodium 136 mmol/L (136-145)
[2023-06-18 07:55] LABS: Lymphocytes % 19 % (10-50); Monocytes % 3 % (2-9); Neutrophils % 78 % (42-76); Platelet Estimate Normal; RBC Morphology Normal; Total Cells Counted 100
[2023-06-18 08:00] VITALS: BP 138/84; PULSE 95; RESP 18; TEMP 37.2; O2SAT 97
[2023-06-18 09:19] VITALS: PULSE 78; PULSE 80; PULSE 81; RESP 16
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
--- NOTE | 2023-06-18 10:08 | XR_ITS ---
FINAL REPORT CLINICAL HISTORY: SOB COMPARISON: 1 day prior FINDINGS: A portable view of the chest was obtained. Cardiac and mediastinal silhouettes are within normal limits. Lung volumes are low. There is persistent right basilar opacity that could represent pneumonia. A right pleural effusion cannot be excluded. There is no pneumothorax. IMPRESSION: Persistent right basilar opacity could represent pneumonia. Reviewed, Interpreted and Dictated by Eufemia Ramirez MD Transcribed by James Mejia Authenticated and [facility]
[2023-06-18 10:27] LABS: ABG Base Excess 3.9 mmol/L (-2.4-2.3); ABG HCO3 27.6 mmhg (22.0-26.0); ABG Oxygen Saturation 97 % (90-100); ABG PH 7.47 mmol/L (7.35-7.45); ABG PO2 78.5 mmhg (80-100); ABG TCO2 28.8 mmhg (23-27)
[2023-06-18 10:32] LABS: Oxygen 1LPM %; Source R BRACHIAL
[2023-06-18 10:58] LABS: Benzodiazepines Screen,Urine Negative ng/ml (<200)
[2023-06-18 10:59] LABS: Amphetamine/Metha Screen,Urine Negative ng/ml (<1000); Barbiturates Screen,Urine Negative ng/ml (<200)
[2023-06-18 11:00] LABS: Cannabinoid Screen,Urine Negative ng/ml (<50)
[2023-06-18 11:01] LABS: Cocaine Screen,Urine Negative ng/ml (<300); Methadone Screen,Urine Negative ng/ml (<300)
[2023-06-18 11:02] LABS: Opiate Screen,Urine Positive ng/ml (<300); Phencyclidine Screen,Urine Negative ng/ml (<25)
[2023-06-18 11:40] VITALS: BP 151/94; PULSE 96; RESP 18; TEMP 37.2; O2SAT 98
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
--- NOTE | 2023-06-18 14:37 | PC.NURSE ---
Pt. walked to the door and his room air sats are 96%.
--- NOTE | 2023-06-18 15:07 | P.CONPHA_ITS ---
Pharmacy Intervention Comments: Discharge medications reviewed with patient. -Advair Diskus (patient states he has used before, counseled on swishing and spitting water after use) -Hydrocodone (patient stated he couldn't take hydrocodone because of previous reaction, I talked to Dr. Lutz about this, he said he has been receiving the hy drocodone for the entirety of his stay and suspects its fine.) -Levofloxacin (discussed watching out for N/V/D, and finishing the entire course of the medication) Mikie Kramer, PharmD student
--- NOTE | 2023-06-19 14:59 | CARE MANAGER ---
Spoke with patient's significant other. She states he is doing well. Denies any questions or concerns. LAUREN Nur
== END 2023-06-18 16:15 | disposition home or self-care (01) ==
LOC: ER 04:55 → 2ND 05:00
PROVIDERS: Internal Medicine; Internal Medicine Pulmonary Disease; Nurse Practitioner Family; Admitting Provider Internal Medicine; Emergency Provider Emergency Medicine; PCP Family Medicine; Visit Provider Internal Medicine
DX: J18.9 Pneumonia, unspecified organism (principal); A41.9 Sepsis, unspecified organism; F17.210 Nicotine dependence, cigarettes, uncomplicated; I26.99 Other pulmonary embolism without acute cor pulmonale; Z86.718 Personal history of other venous thrombosis and embolism; J43.9 Emphysema, unspecified; I82.432 Acute embolism and thrombosis of left popliteal vein; Z79.01 Long term (current) use of anticoagulants; Z79.899 Other long term (current) drug therapy
CPT/HCPCS: 36415; 71045; 80048; 80053; 80305; 82803; 83605; 83880; 84145; 84484; 85007; 85025; 85378; 85610; 85730; 87040; 87636; 93005; 93970; 94640; 99285; G0378; J1956; J2405; J2543

== ENCOUNTER 2024-05-05 17:23 | Emergency (ER) | payer OTHER, SELFPAY ==
[2024-05-05 17:24] VITALS: BP 150/97; PULSE 94; RESP 18; TEMP 36.9; O2SAT 98; BMI 34.0
[2024-05-05] MEDS: ACETAMINOPHEN 500MG TAB 1000 MG PO (17:41)
[2024-05-05] MEDS: IBUPROFEN 600 MG TABLET PO (17:41)
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
[2024-05-05 18:17] VITALS: BP 163/100; PULSE 86; RESP 18; TEMP 36.9; O2SAT 98
== END 2024-05-05 18:20 | disposition home or self-care (01) ==
PROVIDERS: Emergency Provider Nurse Practitioner Family; PCP Family Medicine
DX: M79.642 Pain in left hand (principal); F17.210 Nicotine dependence, cigarettes, uncomplicated; Z86.718 Personal history of other venous thrombosis and embolism; Z86.711 Personal history of pulmonary embolism; Z79.01 Long term (current) use of anticoagulants
CPT/HCPCS: 99284